=== PATIENT | male | born 1955 | race Caucasian/White ===

== ENCOUNTER 2022-05-24 12:15 | Observation (INO) ==
[2022-05-24 14:47] VITALS: BMI 24.4
[2022-05-24 14:53] LABS: BASOPHILS % (AUTO) 0.4 % (0.2-1.0); EOSINOPHILS # (AUTO) 0.1 x10^3/uL (0.0-0.2); EOSINOPHILS % (AUTO) 1.4 % (0.9-2.9); HEMATOCRIT 31.6 % (42.0-54.0); HEMOGLOBIN 10.3 g/dL (13.5-18.0); LYMPHOCYTES % (AUTO) 13.9 % (21.0-51.0); MEAN CORPUSCULAR HEMOGLOBIN 26.7 pg (27.0-34.0); MEAN CORPUSCULAR HGB CONC 32.7 g/dL (33.0-35.0); MEAN CORPUSCULAR VOLUME 81.5 fL (80.0-100.0); MEAN PLATELET VOLUME 8.1 fL (7.4-11.0); MONOCYTES # (AUTO) 0.8 x10^3/uL (0.3-0.8); MONOCYTES % (AUTO) 10.1 % (0.0-13.0); NEUTROPHILS # (AUTO) 5.6 x10^3/uL (2.2-4.8); NEUTROPHILS % (AUTO) 74.2 % (42.0-75.0); RED BLOOD COUNT 3.88 X10^6/uL (4.7-6.0); RED CELL DISTRIBUTION WIDTH 15.7 % (11.6-16.5); WHITE BLOOD COUNT 7.5 X10^3/uL (3.6-10.0)
[2022-05-24 15:05] LABS: ALANINE AMINOTRANSFERASE 15 Units/L (12-78); ALBUMIN 2.9 g/dL (3.4-5.0); ALKALINE PHOSPHATASE 70 Units/L (46-116); ASPARTATE AMINO TRANSFERASE 18 Units/L (15-37); BLOOD UREA NITROGEN 10 mg/dL (7-18); CALCIUM 8.4 mg/dL (8.5-10.1); CARBON DIOXIDE 29.1 mmol/L (21-32); CHLORIDE 103 mmol/L (98-107); COR CA(FOR HYPOALB) 9.3 mg/dL (8.5-10.1); CREATINE KINASE 220 Units/L (39-308); CREATININE 1.05 mg/dL (0.70-1.30); MAGNESIUM 1.8 mg/dL (2.0-2.9); SODIUM 139 mmol/L (136-145); eGFR NON BLACK RACES > 60 (>60)
--- NOTE | 2022-05-24 15:29 | EKG ---
Test Reason : weakness sob Blood Pressure : */* mmHG Vent. Rate : 92 BPM Atrial Rate : 92 BPM P-R Int : 148 ms QRS Dur : 100 ms QT Int : 356 ms P-R-T Axes : 57 -19 35 degrees QTc Int : 440 ms Normal sinus rhythm Incomplete right bundle branch block Minimal voltage criteria for LVH, may be normal variant ( R in aVL ) Borderline ECG No previous ECGs available Confirmed by Lloyd Duran ([id number]) on 05/27/2022 3:28:25 PM Referred By: Confirmed By: Lloyd Duran
[2022-05-24] MEDS: NS 1,000 ML IV 1,000 ML IV SCH (16:11)
[2022-05-24 16:21] LABS: APPEARANCE,URINE CLEAR (CLEAR); BILIRUBIN,URINE NEGATIVE (NEGATIVE); BLOOD/HEMOGLOBIN,URINE NEGATIVE (NEGATIVE); COLOR,URINE YELLOW (YELLOW); GLUCOSE, URINE NEGATIVE (NEGATIVE); KETONES,URINE NEGATIVE (NEGATIVE); LEUKOCYTE ESTERASE ,URINE NEGATIVE (NEGATIVE); NITRITES,URINE NEGATIVE (NEGATIVE); PROTEIN,URINE NEGATIVE (NEGATIVE); UROBILINOGEN,URINE NORMAL (NORMAL)
[2022-05-24] MEDS ORDERED: MAGNESIUM SULFATE 1 GRAM/100 mL PREMIX 1 G/100 ML BAG IV PRN (16:23)
[2022-05-24] MEDS ORDERED: K-DUR TAB 20 MEQ PO PRN (16:23)
[2022-05-24] MEDS: COLACE CAP 100 MG PO SCH (20:57)
[2022-05-25] MEDS: NS 1,000 ML IV 1,000 ML IV SCH ×2 (04:26→20:04)
[2022-05-25] MEDS ORDERED: NORCO 5/325 MG TAB PO PRN (05:38)
[2022-05-25 06:23] LABS: BASOPHILS # (AUTO) 0.1 X10^3/uL (0.0-0.1); BASOPHILS % (AUTO) 0.8 % (0.2-1.0); EOSINOPHILS # (AUTO) 0.2 x10^3/uL (0.0-0.2); EOSINOPHILS % (AUTO) 3.6 % (0.9-2.9); HEMATOCRIT 31.6 % (42.0-54.0); HEMOGLOBIN 10.3 g/dL (13.5-18.0); LYMPHOCYTES # (AUTO) 1.3 X10^3/uL (1.3-2.9); LYMPHOCYTES % (AUTO) 20.3 % (21.0-51.0); MEAN CORPUSCULAR HEMOGLOBIN 26.6 pg (27.0-34.0); MEAN CORPUSCULAR HGB CONC 32.8 g/dL (33.0-35.0); MEAN CORPUSCULAR VOLUME 81.3 fL (80.0-100.0); MEAN PLATELET VOLUME 8.4 fL (7.4-11.0); MONOCYTES # (AUTO) 0.7 x10^3/uL (0.3-0.8); MONOCYTES % (AUTO) 10.4 % (0.0-13.0); NEUTROPHILS # (AUTO) 4.2 x10^3/uL (2.2-4.8); NEUTROPHILS % (AUTO) 64.9 % (42.0-75.0); RED BLOOD COUNT 3.88 X10^6/uL (4.7-6.0); RED CELL DISTRIBUTION WIDTH 15.6 % (11.6-16.5); WHITE BLOOD COUNT 6.4 X10^3/uL (3.6-10.0)
[2022-05-25 06:28] LABS: ALANINE AMINOTRANSFERASE 15 Units/L (12-78); ALBUMIN 2.7 g/dL (3.4-5.0); ALKALINE PHOSPHATASE 69 Units/L (46-116); ASPARTATE AMINO TRANSFERASE 19 Units/L (15-37); BLOOD UREA NITROGEN 12 mg/dL (7-18); CALCIUM 8.5 mg/dL (8.5-10.1); CARBON DIOXIDE 29.4 mmol/L (21-32); CHLORIDE 107 mmol/L (98-107); COR CA(FOR HYPOALB) 9.5 mg/dL (8.5-10.1); CREATININE 0.95 mg/dL (0.70-1.30); MAGNESIUM 2.1 mg/dL (2.0-2.9); SODIUM 142 mmol/L (136-145); TOTAL PROTEIN 5.8 g/dL (6.4-8.2); eGFR NON BLACK RACES > 60 (>60)
--- NOTE | 2022-05-25 07:45 | RAD ---
HISTORYWeakness SOBSTUDYPortable AP chestCOMPARISONReport only July 15, 2019FINDINGSHeart size normal with clear lungs and pleural spaces. Surgical hardware noted in the neck and right shoulder.IMPRESSIONNo acute chest findings. Evidence for recent right TSA.Electronically signed by: JO HENDERSON (May 25, 2022 07:44:30)
[2022-05-25] MEDS ORDERED: PHENERGAN TAB 25 MG PO PRN (08:26)
[2022-05-25] MEDS ORDERED: PERCOCET TAB 5/325 MG PO PRN (08:35)
[2022-05-25] MEDS ORDERED: CARDURA PO SCH (09:00)
[2022-05-25] MEDS: PROSCAR PO SCH (09:35)
[2022-05-25] MEDS: MILK OF MAGNESIA PO SCH (09:36)
[2022-05-25] MEDS: CLARITIN PO SCH (09:36)
[2022-05-25] MEDS: VITAMIN D3 25 mcg (1,000 UNITS) PO SCH (09:36)
[2022-05-25] MEDS: CARDURA PO SCH (09:36)
[2022-05-25] MEDS: CELEBREX PO SCH ×2 (09:36→20:04)
[2022-05-25] MEDS: NexIUM PO SCH (09:36)
[2022-05-25] MEDS: XARELTO PO SCH (09:37)
[2022-05-25] MEDS: ZESTRIL TAB 10 MG PO SCH (09:37)
[2022-05-25] MEDS: NEURONTIN CAP 300 MG PO SCH ×2 (09:37→20:03)
--- NOTE | 2022-05-25 11:13 | DR.UPDATE ---
H&P Update Prescription drug monitoring program results: PDMP reviewed with concerns identified H&P Reviewed: Yes Any changes to H&P?: Yes Changes noted:: IS A 66 YEAR OLD PATIENT OF OURS. HE WAS A DIRECT ADMISSION FROM THE OFFICE, OBSERVATION STATUS, FOR TREATMENT OF DEHYDRATION, NEAR SYNCOPE, AND GENERALIZED WEAKNESS. HE HAD RIGHT SHOULDER SURGERY AT THE BEGINNING OF THE WEEK. HIS PMH INCLUDES: HTN, GERD, HYPERLIPIDEMIA, ALLERGIC RHINITIS. ON ARRIVAL TO THE HOSPITAL, HIS VITALS WERE: 98.1-92-18-98%-116/65. LABS WERE OBTAINED. WBC 7.5, RBC 3.88, HGB 10.3, HCT 31.6, PLT COUNT 151, SODIUM 139, POTASSIUM 3.8, CHLORIDE 103, CARBON DIOXIDE 29.1, BUN 10, CREATININE 1.05, GLUCOSE 88, CALCIUM 8.4, MAGNEISUM 1.8, AST 18, ALT 15, ALK PHOS 70, CREATINE KINASE 220, TROPONIN 6.3, TOTAL PROTEIN 6.0, ALBUMIN 2.9. URINALYSIS WAS UNREMARKABLE, HOWEVER, A CULTURE WAS SET UP. A CHEST XRAY WAS OBTAINED AND REVEALED: NO ACUTE CHEST FINDINGS. EKG REVEALED NORMAL SINUS RHYTHM. INCOMPLETE RIGHT BUNDLE BRANCH BLOCK. HR 92 BPM. HE WAS STARTED ON NORMAL SALINE AT 80 ML/ HR, AND HIS HOME MEDICATIONS WERE RESUMED. HOME MEDS INCLUDE: CELEBREX, VITAMIN D, COLACE, CARDURA, NEXIUM, PROSCAR, NEURONTIN, NORCO, ZESTRIL, CLARITIN, MILK OF MAGNESIA, PERCOCET PRN, K-DUR, PHENERGAN PRN, XARELTO, AND CRESTOR. WE WILL HAVE PHYSICAL THERAPY EVALUATE AND WORK WITH HIM TODAY. OTHERWISE, WE WILL FOLLOW-UP WITH AM LABS AND CONTINUE TO MONITOR. TIME SPENT ON CLINICAL ASSESSMENT, REVIWING LABS AND IMAGING, DECISION MAKING, AND DOCUMENTATION GREATER THAN 75 MINUTES. Patient was examined?: Yes
[2022-05-25] MEDS: COLACE CAP 100 MG PO SCH (20:03)
[2022-05-25] MEDS ORDERED: CRESTOR TAB 10 MG PO SCH (21:00)
[2022-05-26 05:43] LABS: BASOPHILS % (AUTO) 0.8 % (0.2-1.0); EOSINOPHILS # (AUTO) 0.4 x10^3/uL (0.0-0.2); EOSINOPHILS % (AUTO) 6.7 % (0.9-2.9); HEMATOCRIT 30.1 % (42.0-54.0); HEMOGLOBIN 9.9 g/dL (13.5-18.0); LYMPHOCYTES # (AUTO) 1.2 X10^3/uL (1.3-2.9); LYMPHOCYTES % (AUTO) 23.5 % (21.0-51.0); MEAN CORPUSCULAR HEMOGLOBIN 26.9 pg (27.0-34.0); MEAN CORPUSCULAR HGB CONC 33.1 g/dL (33.0-35.0); MEAN CORPUSCULAR VOLUME 81.3 fL (80.0-100.0); MEAN PLATELET VOLUME 8.2 fL (7.4-11.0); MONOCYTES # (AUTO) 0.5 x10^3/uL (0.3-0.8); MONOCYTES % (AUTO) 9.4 % (0.0-13.0); NEUTROPHILS # (AUTO) 3.1 x10^3/uL (2.2-4.8); NEUTROPHILS % (AUTO) 59.6 % (42.0-75.0); RED CELL DISTRIBUTION WIDTH 15.9 % (11.6-16.5); WHITE BLOOD COUNT 5.3 X10^3/uL (3.6-10.0)
[2022-05-26] MEDS: NS 1,000 ML IV 1,000 ML IV SCH (05:48)
[2022-05-26 05:53] LABS: ALANINE AMINOTRANSFERASE 18 Units/L (12-78); ALBUMIN 2.4 g/dL (3.4-5.0); ALKALINE PHOSPHATASE 73 Units/L (46-116); ASPARTATE AMINO TRANSFERASE 22 Units/L (15-37); BLOOD UREA NITROGEN 13 mg/dL (7-18); CALCIUM 7.9 mg/dL (8.5-10.1); CARBON DIOXIDE 26.3 mmol/L (21-32); CHLORIDE 108 mmol/L (98-107); COR CA(FOR HYPOALB) 9.2 mg/dL (8.5-10.1); CREATININE 0.97 mg/dL (0.70-1.30); SODIUM 141 mmol/L (136-145); TOTAL PROTEIN 5.4 g/dL (6.4-8.2); eGFR NON BLACK RACES > 60 (>60)
[2022-05-26] MEDS: VITAMIN D3 25 mcg (1,000 UNITS) PO SCH (09:01)
[2022-05-26] MEDS: PROSCAR PO SCH (09:01)
[2022-05-26] MEDS: XARELTO PO SCH (09:01)
[2022-05-26] MEDS: MILK OF MAGNESIA PO SCH (09:01)
[2022-05-26] MEDS: NEURONTIN CAP 300 MG PO SCH (09:02)
[2022-05-26] MEDS: CARDURA PO SCH (09:02)
[2022-05-26] MEDS: CLARITIN PO SCH (09:02)
[2022-05-26] MEDS: ZESTRIL TAB 10 MG PO SCH (09:02)
[2022-05-26] MEDS: NexIUM PO SCH (09:02)
[2022-05-26] MEDS: CELEBREX PO SCH (09:02)
[2022-05-26 09:43] VITALS: BP 130/67
== END 2022-05-26 11:00 | disposition home health service (06) ==
LOC: MED/SURG
PROVIDERS: ADMIT Internal Medicine; ATTEND Internal Medicine
DX: J30.89 Other allergic rhinitis; R53.1 Weakness; E78.2 Mixed hyperlipidemia; R06.02 Shortness of breath; E86.0 Dehydration; R55 Syncope and collapse; I10 Essential (primary) hypertension; K21.9 Gastro-esophageal reflux disease without esophagitis; Z98.890 Other specified postprocedural states